=== PATIENT | female | born 1990 | race African-American/Black ===

== ENCOUNTER 2021-04-01 11:51 | Emergency (ER) | payer SELFPAY ==
[~2021-04-01] VITALS: Ht 172.7 cm; Wt 73.0 kg
[2021-04-01] MEDS ORDERED: ALBUTEROL (0.083%) 2.5MG/3ML NEB HHN STA (12:17)
[2021-04-01] MEDS ORDERED: METHYLPREDNISOLONE SOD SUCC 125 MG/2 ML VIAL IV STA (12:17)
[2021-04-01] MEDS ORDERED: IPRATROPIUM BROMIDE (0.02%) 0.5MG/2.5ML NEB HHN STA (12:17)
[2021-04-01] MEDS ORDERED: MAGNESIUM 2 G PREMIX 50 ML IV ONE (12:30)
[2021-04-01] MEDS ORDERED: ALBUTEROL (0.083%) 2.5MG/3ML NEB ONE (12:37)
[2021-04-01 12:38] LABS: BASOPHILS % 0.4 % (0.0-2.0); EOSINOPHILS % 10.3 % (0.0-5.0); HEMATOCRIT. 41.4 % (36.0-48.0); LYMPHOCYTES % 22.6 % (20.0-50.0); MEAN PLATELET VOLUME 8.1 fl (7.4-10.4); MONOCYTES % 6.3 % (2.0-8.0); NEUTROPHILS % 60.4 % (40.0-76.0); PLATELET 255 x1000/uL (130-400); RED BLOOD CELL COUNT 4.99 mill/uL (4.2-5.4); RED CELL DISTRIBUTION WIDTH 15.2 % (11.6-14.6)
[2021-04-01 12:49] LABS: CHLORIDE 110 mEq/L (98-107)
[2021-04-01 13:00] LABS: HCG SCREEN NEGATIVE
[2021-04-01 15:09] LABS: CLARITY URINE CLEAR (CLEAR); COLOR URINE YELLOW (YELLOW); KETONES URINE 3+ (NEGATIVE); LEUKOCYTE ESTERASE URINE TRACE (NEGATIVE); NITRITE URINE NEGATIVE (NEGATIVE); OCCULT BLOOD URINE NEGATIVE (NEGATIVE); PH URINE 6.5 (4.5-8.0); PROTEIN URINE 1+ (NEGATIVE); SPECIFIC GRAVITY URINE 1.023 (1.005-1.030); UROBILINOGEN URINE 0.2 E.U./dL (0.2-1.0)
[2021-04-01 15:48] LABS: *AMPHETAMINES SCREEN URINE NEGATIVE (NEGATIVE); *BARBITURATES SCREEN URINE NEGATIVE (NEGATIVE); *COCAINE SCREEN URINE NEGATIVE (NEGATIVE)
[2021-04-01 15:50] LABS: CANNABINOID URINE SCREEN NEGATIVE (NEGATIVE); METHADONE URINE SCREEN NEGATIVE (NEGATIVE); OPIATES URINE SCREEN NEGATIVE (NEGATIVE); PHENCYCLIDINE URINE SCREEN NEGATIVE (NEGATIVE)
[2021-04-01 15:52] LABS: *BENZODIAZEPINES SCREEN URINE NEGATIVE (NEGATIVE)
[2021-04-01] MEDS ORDERED: IOHEXOL-350 100 ML BOTTLE ONE (18:36)
[2021-04-01] MEDS ORDERED: ALBU6.7H9 INH (19:03)
[2021-04-01] MEDS ORDERED: AZIT250T12 MT (19:03)
[2021-04-01] MEDS ORDERED: PRED5TAB48 MT (19:03)
[2021-04-01 19:13] VITALS: BP 132/89
== END 2021-04-01 20:03 | disposition home or self-care (01) ==
LOC: ER 11:51
DX: J45.909 Unspecified asthma, uncomplicated (principal); Z20.822 Contact with and (suspected) exposure to COVID-19; Z98.890 Other specified postprocedural states
CPT/HCPCS: 36415; 71045; 71275; 80053; 80305; 81003; 83880; 84484; 84703; 85025; 85379; 87426; 87804; 93005; 94640; 96365; 96375; 99291; J2930; J3475; Q9967; Z7610

== ENCOUNTER 2021-04-03 08:09 | Inpatient (IN) | payer SELFPAY ==
[~2021-04-03] VITALS: Ht 177.8 cm; Wt 84.8 kg
[~2021-04-03 08:09] MED LIST: ALBU6.7H9 INH; AZIT250T12 MT; PRED5TAB48 MT
[2021-04-03] MEDS ORDERED: IPRATROPIUM BROMIDE (0.02%) 0.5MG/2.5ML NEB HHN STA (08:13)
[2021-04-03] MEDS ORDERED: ALBUTEROL (0.083%) 2.5MG/3ML NEB HHN STA (08:13)
[2021-04-03] MEDS ORDERED: METHYLPREDNISOLONE SOD SUCC 125 MG/2 ML VIAL IV ONE (08:15)
[2021-04-03] MEDS ORDERED: IPRATROPIUM BROMIDE (0.02%) 0.5MG/2.5ML NEB ONE (08:26)
[2021-04-03] MEDS ORDERED: ALBUTEROL (0.083%) 2.5MG/3ML NEB ONE (08:26)
[2021-04-03 08:48] LABS: BASOPHILS % 0.3 % (0.0-2.0); EOSINOPHILS % 0.4 % (0.0-5.0); HEMATOCRIT. 38.5 % (36.0-48.0); HEMOGLOBIN. 12.7 g/dL (12.0-16.0); LYMPHOCYTES % 18.4 % (20.0-50.0); MEAN CORPUSCULAR HEMOGLOBIN 27.5 pg (28.0-32.0); MEAN CORPUSCULAR VOLUME 83.3 fL (81.0-99.0); MEAN PLATELET VOLUME 8.1 fl (7.4-10.4); MONOCYTES % 8.5 % (2.0-8.0); NEUTROPHILS % 72.4 % (40.0-76.0); PLATELET 275 x1000/uL (130-400); RED BLOOD CELL COUNT 4.63 mill/uL (4.2-5.4); RED CELL DISTRIBUTION WIDTH 15.3 % (11.6-14.6)
[2021-04-03 08:57] LABS: CHLORIDE 108 mEq/L (98-107)
[2021-04-03 08:59] LABS: PROTHROMBIN TIME 10.6 sec (9.6-11.0)
[2021-04-03 09:01] LABS: ETHANOL BLOOD < 10 mg/dL
[2021-04-03 09:13] LABS: BG BASE EXCESS -3.2 mmol/L (-2.0-2.0); BG CARBOXYHEMOGLOBIN 0.5 % (0.5-1.5); BG DEOXYHEMOGLOBIN 0.6 % (0.0-5.0); BG HCO3 ACT 21.9 mmol/L (22.0-26.0); BG METHEMOGLOBIN 0.3 % (0.0-1.5); BG OXYGEN SATURATION 99.4 % (92.0-98.5); BG OXYHEMOGLOBIN 98.6 % (94.0-97.0); BG PCO2 39.5 mmHg (35.0-45.0); BG PH 7.361 (7.350-7.450); BG PO2 183.4 mmHg (75.0-100.0); BG SAMPLE SITE RIGHT BRACHIAL; BG TOTAL HEMOGLOBIN 13.4 g/dL (12.0-18.0); BG VENT MODE MASK-BREATHING TX
[2021-04-03 09:23] LABS: CLARITY URINE CLEAR (CLEAR); COLOR URINE YELLOW (YELLOW); KETONES URINE TRACE (NEGATIVE); LEUKOCYTE ESTERASE URINE TRACE (NEGATIVE); NITRITE URINE NEGATIVE (NEGATIVE); OCCULT BLOOD URINE NEGATIVE (NEGATIVE); PROTEIN URINE TRACE (NEGATIVE); SPECIFIC GRAVITY URINE 1.031 (1.005-1.030)
[2021-04-03 10:11] LABS: *AMPHETAMINES SCREEN URINE NEGATIVE (NEGATIVE); *BARBITURATES SCREEN URINE NEGATIVE (NEGATIVE); *BENZODIAZEPINES SCREEN URINE NEGATIVE (NEGATIVE); *COCAINE SCREEN URINE NEGATIVE (NEGATIVE); METHADONE URINE SCREEN NEGATIVE (NEGATIVE); OPIATES URINE SCREEN NEGATIVE (NEGATIVE); PHENCYCLIDINE URINE SCREEN NEGATIVE (NEGATIVE)
[2021-04-03 10:12] LABS: CANNABINOID URINE SCREEN NEGATIVE (NEGATIVE)
[2021-04-03] MEDS ORDERED: ONDANSETRON HCL 4MG/2ML INJ IV PRN (14:45)
[2021-04-03] MEDS ORDERED: IPRATROPIUM/ALBUTEROL 0.5-3(2.5)MG/3ML NEB HHN PRN (14:45)
[2021-04-03] MEDS ORDERED: CLONIDINE 0.1MG TABLET PO PRN (14:45)
[2021-04-03] MEDS ORDERED: ACETAMINOPHEN 325MG TABLET PO PRN (14:45)
[2021-04-03] MEDS ORDERED: DIPHENHYDRAMINE 50MG/ML VIAL IV PRN (14:45)
[2021-04-03] MEDS: METHYLPREDNISOLONE SOD SUCC 125 MG/2 ML VIAL IV SCH ×2 (15:00→20:48)
[2021-04-03] MEDS ORDERED: NOREPINEPHRINE 8MG/250ML PMX 250 ML IV ONE (15:30)
[2021-04-03 17:00] VITALS: BP 124/72
[2021-04-03 18:00] VITALS: BP 124/72
[2021-04-03] MEDS ORDERED: MONTELUKAST SODIUM 10MG TABLET PO NR (19:15)
[2021-04-03 20:00] VITALS: BP 127/75
[2021-04-04] VITALS: BP 124/74
[2021-04-04] MEDS: IPRATROPIUM/ALBUTEROL 0.5-3(2.5)MG/3ML NEB HHN SCH ×2 (00:49→08:48)
[2021-04-04] MEDS: METHYLPREDNISOLONE SOD SUCC 125 MG/2 ML VIAL IV SCH ×2 (01:59→08:54)
[2021-04-04 04:00] VITALS: BP 141/84
[2021-04-04 08:00] VITALS: BP 142/78
[2021-04-04 08:38] LABS: BASOPHILS % 0.1 % (0.0-2.0); HEMATOCRIT. 38.4 % (36.0-48.0); HEMOGLOBIN. 12.6 g/dL (12.0-16.0); LYMPHOCYTES % 8.8 % (20.0-50.0); MEAN CORPUSCULAR HEMOGLOBIN 27.6 pg (28.0-32.0); MEAN CORPUSCULAR VOLUME 84.3 fL (81.0-99.0); MEAN PLATELET VOLUME 8.5 fl (7.4-10.4); MONOCYTES % 2.7 % (2.0-8.0); NEUTROPHILS % 88.4 % (40.0-76.0); PLATELET 296 x1000/uL (130-400); RED BLOOD CELL COUNT 4.56 mill/uL (4.2-5.4); RED CELL DISTRIBUTION WIDTH 15.5 % (11.6-14.6)
[2021-04-04 08:41] LABS: CHLORIDE 106 mEq/L (98-107)
[2021-04-04 08:50] LABS: HDL CHOLESTEROL 70 mg/dL (40-59); LDL CHOLESTEROL 59 mg/dL (5-100)
[2021-04-04] MEDS ORDERED: FAMO20TA8 MT (11:27)
[2021-04-04] MEDS ORDERED: ALBU6.7H9 INH (11:27)
[2021-04-04] MEDS ORDERED: MONT10TA21 PO (11:27)
[2021-04-04] MEDS ORDERED: MED4 MT (11:27)
[2021-04-04 12:00] VITALS: BP 138/73
[2021-04-04 12:59] VITALS: BP 142/78
[2021-04-04] MEDS ORDERED: MONTELUKAST SODIUM 10MG TABLET PO SCH (17:00)
== END 2021-04-04 13:23 | disposition home or self-care (01) | DRG 133 ==
LOC: ER 08:09 → 8WST 13:31 → EDBEDREQTM 13:33 → EDBEDREQ 13:33 → ENRESERV 15:17
PROVIDERS: ADMIT Internal Medicine; ATTEND Internal Medicine
DX: J96.01 Acute respiratory failure with hypoxia (principal); E44.1 Mild protein-calorie malnutrition; J84.9 Interstitial pulmonary disease, unspecified; J45.901 Unspecified asthma with (acute) exacerbation; Z20.822 Contact with and (suspected) exposure to COVID-19; J42 Unspecified chronic bronchitis; Z86.16 Personal history of COVID-19; Z79.899 Other long term (current) drug therapy; Z68.26 Body mass index [BMI] 26.0-26.9, adult
CPT/HCPCS: 36415; 36600; 71045; 80053; 80061; 80305; 80320; 81003; 82375; 82805; 83605; 83880; 84145; 84443; 84484; 85025; 87426; 93005; 93970; 94640; 94644; 99291; J2930; G0480

== ENCOUNTER 2023-12-11 16:19 | Emergency (ER) | payer MEDICAID ==
[~2023-12-11] VITALS: Ht 167.6 cm; Wt 75.0 kg
[~2023-12-11 16:19] MED LIST changes: +ALBU6.7H3 INH; -ALBU6.7H9 INH; -AZIT250T12 MT; +FAMO20TA8 MT; +MED4 MT; +MONT-46 PO; -PRED5TAB48 MT
[2023-12-11 16:21] VITALS: O2SAT 98
[2023-12-11] MEDS ORDERED: ALBUTEROL (0.083%) 2.5MG/3ML NEB HHN STA (16:25)
[2023-12-11] MEDS ORDERED: IPRATROPIUM BROMIDE (0.02%) 0.5MG/2.5ML NEB HHN STA (16:25)
[2023-12-11] MEDS: METHYLPREDNISOLONE SOD SUCC 125MG/2ML (ACT-O-VIAL) IV STA (17:12)
[2023-12-11] MEDS: MAGNESIUM 2 G PREMIX 50 ML IV STA (17:12)
[2023-12-11] MEDS ORDERED: ALBU2.5V13 NEB (17:25)
[2023-12-11] MEDS ORDERED: P20 MT (17:25)
[2023-12-11] MEDS ORDERED: ALBU90AE INH (17:25)
[2023-12-11] MEDS ORDERED: ACETAMINOPHEN 325MG TABLET PO ONE (17:30)
[2023-12-11 19:20] VITALS: BP 128/60; PULSE 101; RESP 15
[2023-12-11 19:30] VITALS: TEMP 97.1
[2023-12-11] MEDS: ACETAMINOPHEN 500MG TABLET PO NR (19:30)
[2023-12-14] MEDS ORDERED: ALBU6.7H15 INH (14:24)
[2023-12-14] MEDS ORDERED: P20 MT (14:24)
[2023-12-14] MEDS ORDERED: ALBU2.5V13 NEB (14:27)
== END 2023-12-11 19:44 | disposition home or self-care (01) ==
LOC: ER 16:19
DX: J45.901 Unspecified asthma with (acute) exacerbation (principal); F19.90 Other psychoactive substance use, unspecified, uncomplicated; Z88.8 Allergy status to other drugs, medicaments and biological substances; Z88.6 Allergy status to analgesic agent
CPT/HCPCS: 71045; 96365; 96366; 96375; 99285; J3475; J2919; Z7610 ×2

== ENCOUNTER 2024-01-18 11:11 | Emergency (ER) | payer MEDICAID ==
[~2024-01-18] VITALS: Ht 172.7 cm; Wt 89.0 kg
[~2024-01-18 11:11] MED LIST changes: +ALBU2.5V13 NEB; +ALBU6.7H15 INH; +ALBU90AE INH; +P20 MT
[2024-01-18] MEDS ORDERED: ALBUTEROL (0.083%) 2.5MG/3ML NEB HHN STA (11:56)
[2024-01-18] MEDS ORDERED: PREDNISONE 20MG TABLET PO STA (11:56)
[2024-01-18] MEDS ORDERED: ONDANSETRON HCL 4MG/2ML INJ IV STA (11:56)
[2024-01-18] MEDS ORDERED: FAMOTIDINE 20MG/2ML VIAL IV STA (11:56)
[2024-01-18] MEDS ORDERED: IPRATROPIUM BROMIDE (0.02%) 0.5MG/2.5ML NEB HHN STA (11:56)
[2024-01-18] MEDS ORDERED: ACETAMINOPHEN 325MG TABLET PO ONE (12:00)
[2024-01-18] MEDS: SODIUM CHLORIDE 0.9% 1,000 ML IV ONE (12:00)
[2024-01-18 12:24] LABS: BASOPHILS % 0.7 % (0.0-2.0); EOSINOPHILS % 4.9 % (0.0-5.0); HEMATOCRIT. 38.6 % (36.0-48.0); HEMOGLOBIN. 12.6 g/dL (12.0-16.0); MEAN CORPUSCULAR HGB CONC 32.5 g/dL (31.0-37.0); MEAN CORPUSCULAR VOLUME 86.1 fL (81.0-99.0); MEAN PLATELET VOLUME 7.3 fl (7.4-10.4); NEUTROPHILS % 64.4 % (40.0-76.0); PLATELET 404 x1000/uL (130-400); RED BLOOD CELL COUNT 4.48 mill/uL (4.2-5.4); RED CELL DISTRIBUTION WIDTH 16.4 % (11.6-14.6); WHITE BLOOD COUNT 7.7 x1000/uL (4.5-11.0)
[2024-01-18 12:32] LABS: POTASSIUM 2.9 mEq/L (3.5-5.1)
[2024-01-18 12:33] LABS: CALCIUM 9.3 mg/dL (8.7-10.4)
[2024-01-18 12:38] LABS: CREATININE 1.3 mg/dL (0.6-1.0); PROTHROMBIN TIME 11.3 sec (9.6-11.0)
[2024-01-18 13:06] LABS: HCG SCREEN NEGATIVE
[2024-01-18] MEDS: ALBUTEROL (0.083%) 2.5MG/3ML NEB HHN NR (14:25)
[2024-01-18] MEDS: IPRATROPIUM BROMIDE (0.02%) 0.5MG/2.5ML NEB HHN NR (14:26)
[2024-01-18] MEDS: FAMOTIDINE 20MG/2ML VIAL IV NR (14:37)
[2024-01-18] MEDS: PREDNISONE 20MG TABLET PO NR (14:37)
[2024-01-18] MEDS: POTASSIUM CHLORIDE 20MEQ TABLET SR PO NR (14:37)
[2024-01-18] MEDS: ACETAMINOPHEN 325MG TABLET PO NR (14:37)
[2024-01-18] MEDS: ONDANSETRON HCL 4MG/2ML INJ IV NR (14:37)
[2024-01-18] MEDS ORDERED: MORPHINE SULFATE 4 MG/ML INJ (FOR IV/IM USE) IV STA (15:43)
[2024-01-18] MEDS: METOCLOPRAMIDE HCL 10MG/2ML VIAL IV NR (16:02)
[2024-01-18 17:55] VITALS: BP 130/77; TEMP 36.78072; O2SAT 95
[2024-01-18 18:50] VITALS: PULSE 78; RESP 16; O2SAT 96
== END 2024-01-18 17:56 | disposition home or self-care (01) ==
LOC: ER 11:11 → EDBEDREQTM 17:36 → EDBEDREQ 17:36 → CANBEDREQ 17:40 → ER 17:56
DX: B34.9 Viral infection, unspecified (principal); J45.901 Unspecified asthma with (acute) exacerbation; R11.2 Nausea with vomiting, unspecified; E87.6 Hypokalemia; Z20.822 Contact with and (suspected) exposure to COVID-19; Z88.0 Allergy status to penicillin; Z88.6 Allergy status to analgesic agent; Z79.899 Other long term (current) drug therapy
CPT/HCPCS: 80048; 84703; 83690; 85025; 85610; 36415; 71045; 94640; 96361; 96374; 96375; 99284; J7512; J3490; J2765; J2405; Z7610 ×4; J7030

== ENCOUNTER 2024-12-16 10:37 | Emergency (ER) | payer MEDICAID, OTHER ==
[~2024-12-16] VITALS: Ht 170.2 cm; Wt 95.0 kg
[~2024-12-16 10:37] MED LIST changes: -ALBU2.5V13 NEB; -ALBU6.7H15 INH; -ALBU6.7H3 INH; -FAMO20TA8 MT; +FLUT1DIS3 INH; +IPRA3AMP9 NEB; -MED4 MT
[2024-12-16] MEDS: ALBUTEROL (0.083%) 2.5MG/3ML NEB HHN ONE (11:14)
[2024-12-16 11:15] VITALS: PULSE 110; RESP 21; O2SAT 89
[2024-12-16] MEDS: IPRATROPIUM BROMIDE (0.02%) 0.5MG/2.5ML NEB HHN ONE (11:15)
[2024-12-16 11:31] LABS: BASOPHILS % 0.6 % (0.0-2.0); EOSINOPHILS % 8.7 % (0.0-5.0); HEMATOCRIT. 37.6 % (36.0-48.0); HEMOGLOBIN. 12.4 g/dL (12.0-16.0); LYMPHOCYTES % 35.2 % (20.0-50.0); MEAN PLATELET VOLUME 7.6 fl (7.4-10.4); MONOCYTES % 5.9 % (2.0-8.0); NEUTROPHILS % 49.6 % (40.0-76.0); PLATELET 293 x1000/uL (130-400); RED BLOOD CELL COUNT 4.44 mill/uL (4.2-5.4); RED CELL DISTRIBUTION WIDTH 16.2 % (11.6-14.6)
[2024-12-16 11:55] LABS: CREATININE 1.1 mg/dL (0.6-1.0)
[2024-12-16 11:56] LABS: ETHANOL BLOOD 119 mg/dL (<10); UREA NITROGEN BLOOD 11 mg/dL (9-23)
[2024-12-16 12:04] VITALS: BP 120/83; PULSE 89; RESP 22; TEMP 36.9; O2SAT 99
[2024-12-16] MEDS: SODIUM CHLORIDE 0.9% 1,000 ML IV ONE (12:19)
[2024-12-16] MEDS: METHYLPREDNISOLONE SOD SUCC 125MG/2ML (ACT-O-VIAL) IV ONE (12:19)
[2024-12-16] MEDS: MAGNESIUM 2 G PREMIX 50 ML IV ONE (12:19)
[2024-12-16] MEDS: ONDANSETRON HCL 4MG/2ML INJ IV ONE (12:19)
[2024-12-16] MEDS ORDERED: ALBU90AE INH (12:25)
[2024-12-16] MEDS ORDERED: P20 MT (12:25)
[2024-12-16] MEDS: POTASSIUM CHLORIDE 20MEQ TABLET SR PO NR (13:36)
== END 2024-12-16 13:38 | disposition home or self-care (01) ==
LOC: ER 10:48
DX: J45.901 Unspecified asthma with (acute) exacerbation (principal); F17.200 Nicotine dependence, unspecified, uncomplicated; F10.129 Alcohol abuse with intoxication, unspecified; I10 Essential (primary) hypertension; E87.6 Hypokalemia; Z79.51 Long term (current) use of inhaled steroids; Z88.0 Allergy status to penicillin; Z88.6 Allergy status to analgesic agent; Y90.9 Presence of alcohol in blood, level not specified
CPT/HCPCS: 80048; 80320; 83690; 83735; 85025; 36415; 71045; 94640; 93005; 96365; 96375; 99284; 99406; J3475; J2919; J2405; Z7610 ×3; J7030; 94070; 94664; 98960; A4606; G0480